=== PATIENT | male | born 1945 | race Caucasian/White ===

== ENCOUNTER 2016-12-07 08:29 | Outpatient (CLI) | payer OTHER ==
[~2016-12-07] VITALS: Ht 175.3 cm; Wt 81.6 kg
[2016-12-07] VITALS (7 sets, daily range): BP systolic 83–100; BP diastolic 55–73
[2016-12-07] MEDS ORDERED: DOXA8TAB59 PO (09:09)
[2016-12-07] MEDS ORDERED: CYCL10TA2 PO (09:09)
[2016-12-07] MEDS ORDERED: CHOL10003 PO (09:09)
[2016-12-07] MEDS ORDERED: SENN1TAB99 PO (09:09)
[2016-12-07] MEDS ORDERED: PREG50CA PO ×2 (09:09)
[2016-12-07] MEDS ORDERED: MORP15TA PO ×2 (09:09)
[2016-12-07] MEDS ORDERED: VENL150C PO (09:09)
[2016-12-07] MEDS ORDERED: SERT100T8 PO (09:09)
[2016-12-07] MEDS ORDERED: CYAN10005 PO (09:09)
[2016-12-07] MEDS ORDERED: TRAZ50TA15 PO (09:09)
[2016-12-07] MEDS ORDERED: HYDR25TA9 PO (09:09)
[2016-12-07] MEDS ORDERED: MELO-156 PO (09:09)
[2016-12-07 09:30] LABS: BASO % 0 % (0-3); EOS % 1 % (0-3); HEMATOCRIT 45.4 % (39.0-53.0); HEMOGLOBIN 15.4 g/dL (13.0-17.5); LYMPH # 1.2 x10^3/uL (1.0-4.8); LYMPH % 19 % (24-48); MEAN CORPUSCULAR HEMOGLOBIN 32 pg (25-35); MEAN CORPUSCULAR HGB CONC 34 g/dL (31-37); MEAN CORPUSCULAR VOLUME 95 fL (79-100); MONO % 7 % (0-9); NEUT % 73 % (31-73); PLATELET COUNT 139 x10^3/uL (140-400); RED BLOOD COUNT 4.78 x10^6/uL (4.30-5.70)
[2016-12-07 09:36] LABS: CREATININE 0.9 mg/dL (0.7-1.3); GFR 83.2; POTASSIUM 3.8 mmol/L (3.5-5.1)
[2016-12-07 09:39] LABS: INR 1.1 (0.8-1.1); PROTHROMBIN TIME PATIENT 13.2 SEC (11.7-14.0)
[2016-12-07] MEDS ORDERED: IODIXANOL 320MG/ML 50ML VIAL. ONE (09:43)
[2016-12-07] MEDS ORDERED: IOHEXOL 300 MG/ML 100ML VIAL. ONE (09:43)
[2016-12-07] MEDS ORDERED: HEPARIN for ARTERIAL LINE 1,500 ML ONE (09:43)
[2016-12-07] MEDS ORDERED: IODIXANOL 320 MG/ML 100 ML VIAL. ONE ×2 (09:43→10:52)
[2016-12-07] MEDS ORDERED: LIDOCAINE 1% / SOD BICARB 8.4% 20 ML VIAL. IJ ONE (09:45)
[2016-12-07] MEDS ORDERED: FENTANYL PF 100 MCG/2 ML VIAL. ONE (10:04)
[2016-12-07] MEDS ORDERED: MIDAZOLAM HCL 2 MG/2 ML VIAL. ONE (10:04)
[2016-12-07] MEDS ORDERED: HEPARIN for IV BOLUS 10,000 UNIT/10 ML VIAL. ONE (10:30)
[2016-12-07] MEDS ORDERED: IOHEXOL 300 MG/ML 100ML VIAL. IART ONE (11:15)
[2016-12-07] MEDS ORDERED: FENTANYL PF 100 MCG/2 ML VIAL. IV ONE (11:15)
[2016-12-07] MEDS ORDERED: HEPARIN for IV BOLUS 10,000 UNIT/10 ML VIAL. IV ONE (11:15)
[2016-12-07] MEDS ORDERED: IODIXANOL 320 MG/ML 100 ML VIAL. IART ONE (11:15)
[2016-12-07] MEDS ORDERED: MIDAZOLAM HCL 2 MG/2 ML VIAL. IV ONE (11:15)
[2016-12-07] MEDS ORDERED: CLOPIDOGREL BISULFATE 75 MG TABLET PO ONE (11:30)
[2016-12-07] MEDS ORDERED: CLOPIDOGREL BISULFATE 75 MG TABLET ONE (11:38)
--- NOTE | 2016-12-07 11:42 | PDOC ---
MODERATE SEDATION ASSESSMENT RISKS/ALTERNATIVES Risks/Alternatives Risks and alternatives of this type of sedation and procedure discussed with: RISK/ALTERNATIVES: Patient H & P ON CHART H & P H & P on chart and reviewed for co-morbid conditions and appropriate labs. H&P ON CHART: Yes STATUS PREG STATUS ASSESSED: N/A MEDS/ALLERGIES REVIEWED Meds/Allergies Reviewed Medications and Allergies including time and route of recently administered narcotics and sedatives. MEDS/ALLERGIES REVIEWED: Yes ASA RATING ASA RATING: I AIRWAY ASSESSMENT Airway Assessment Airway patency, oral function limitations, presence of caps, crowns, dentures, partials, and ability to extend neck assessed. AIRWAY ASSESSMENT: Yes MALLAMPATI SCORE MALLAMPATI SCORE: II PRE-SEDATION ASSESSMENT PRE-SEDATION ASSESSMENT: Yes AMERICA LINCOLN MD Dec 07, 2016 11:42
--- NOTE | 2016-12-07 11:48 | PDOC1 ---
History and Physical Date of Procedure Date of Admission 12/07/16 Procedure Procedure Abdominal aortogram with right lower extremity angio +/- intervention Indication Indication 71 YO male smoker with right small toe gangrene. Abnormal noninvasive study c/ w significant right lower extremity PAD. Diagnostic angio +/- intervention requested by vascular surgery. Past Medical History Past Medical History See Nursing Pre Procedure PMH Past Surgical History Past Surgical History See Nursing Pre Procedure PSH Current Medications Current Medications Current Medications Iodixanol (Visipaque 320) 50 ml STK-MED ONCE .ROUTE ; Start 12/07/16 at 09:43; Stop 12/07/16 at 09:44; Status DC Iohexol 100 ml 100 ml STK-MED ONCE .ROUTE ; Start 12/07/16 at 09:43; Stop at 09:44; Status DC Heparin Sodium/ Sodium Chloride 1,500 ml @ As Directed STK-MED ONCE .ROUTE ; Start 12/07/16 at 09:43; Stop 12/07/16 at 09:44; Status DC Iodixanol (Visipaque 320) 100 ml STK-MED ONCE .ROUTE ; Start 12/07/16 at 09:43; Stop 12/07/16 at 09:44; Status DC Lidocaine/Sodium Bicarbonate (Buffered Lidocaine 1%) 20 ml 1X ONCE IJ Last administered on 12/07/16 11:20; Start 12/07/16 at 09:45; Stop 12/07/16 at 09:46 ; Status DC Fentanyl Citrate (Fentanyl 2ml Vial) 100 mcg STK-MED ONCE .ROUTE ; Start at 10:04; Stop 12/07/16 at 10:05; Status DC Midazolam HCl (Versed) 2 mg STK-MED ONCE .ROUTE ; Start 12/07/16 at 10:04; Stop 12/07/16 at 10:05; Status DC Heparin Sodium (Porcine) 10,000 unit STK-MED ONCE .ROUTE ; Start 12/07/16 at 10: 30; Stop 12/07/16 at 10:31; Status DC Iodixanol (Visipaque 320) 100 ml STK-MED ONCE .ROUTE ; Start 12/07/16 at 10:52; Stop 12/07/16 at 10:53; Status DC Heparin Sodium/ Sodium Chloride 3,000 unit 1X ONCE IART Last administered on 11:21; Start 12/07/16 at 11:15; Stop 12/07/16 at 11:16; Status DC Midazolam HCl (Versed) 2 mg 1X ONCE IV Last administered on 12/07/16 11:21; Start 12/07/16 at 11:15; Stop 12/07/16 at 11:16; Status DC Fentanyl Citrate (Fentanyl 2ml Vial) 100 mcg 1X ONCE IV Last administered on 11:21; Start 12/07/16 at 11:15; Stop 12/07/16 at 11:16; Status DC Iohexol (Omnipaque 300 Mg/ml) 100 ml 1X ONCE IART Last administered on 11:20; Start 12/07/16 at 11:15; Stop 12/07/16 at 11:16; Status DC Iodixanol (Visipaque 320) 100 ml 1X ONCE IART Last administered on 12/07/16 11:20; Start 12/07/16 at 11:15; Stop 12/07/16 at 11:16; Status DC Heparin Sodium (Porcine) 6,000 unit 1X ONCE IV Last administered on 12/07/16 11:26; Start 12/07/16 at 11:15; Stop 12/07/16 at 11:16; Status DC Clopidogrel Bisulfate (Plavix) 600 mg 1X ONCE PO Last administered on 11:30; Start 12/07/16 at 11:30; Stop 12/07/16 at 11:31; Status DC Clopidogrel Bisulfate (Plavix) 75 mg STK-MED ONCE .ROUTE ; Start 12/07/16 at 11: 38; Stop 12/07/16 at 11:39; Status DC Clopidogrel Bisulfate (Plavix) 75 mg DAILYWBKFT PO ; Start 12/08/16 at 08:00; Stop 03/07/17 at 08:00; Status UNV Active Scripts Active Reported Effexor Xr (Venlafaxine Hcl) 150 Mg Cap.er.24h 150 Mg PO DAILY Trazodone Hcl 50 Mg Tablet 50 Mg PO HS Sertraline Hcl 100 Mg Tablet 125 Mg PO DAILY Lyrica (Pregabalin) 50 Mg Capsule 50 Mg PO HS Lyrica (Pregabalin) 50 Mg Capsule 100 Mg PO [id number] Morphine Sulfate 15 Mg Tablet 15 Mg PO AT LUNCH AND DINNER Morphine Sulfate 15 Mg Tablet 30 Mg PO [id number] Meloxicam 7.5 Mg Tablet 7.5 Mg PO DAILY Hydrochlorothiazide Tablet (Hydrochlorothiazide) 25 Mg Tablet 25 Mg PO DAILY Doxazosin Mesylate 8 Mg Tablet 8 Mg PO HS Senna-Docusate Sodium Tablet (Sennosides/Docusate Sodium) 1 Each Tablet 1 Each PO TID Cyclobenzaprine Hcl 10 Mg Tablet 10 Mg PO BID Vitamin B-12 (Cyanocobalamin (Vitamin B-12)) 1,000 Mcg Tablet 1,000 Mcg PO DAILY Vitamin D3 (Cholecalciferol (Vitamin D3)) 1,000 Unit Tablet 1,000 Unit PO DAILY Allergies Allergies: Coded Allergies: No Known Drug Allergies (Unverified , 12/07/16) Physical Exam Vital Signs Vital Signs Date Time Temp Pulse Resp B/P Pulse Ox O2 Delivery O2 Flow Rate FiO2 12/07/16 11:21 14 98 Nasal Cannula 2.0 12/07/16 09:21 98.1 91 100/65 98.1 Lungs: Clear to auscultation Heart: Regular rate Psych/Mental Status: Mental status NL 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 Non palpable right foot/ankle pulse. Right small toe ulceration Diagnostic Data/Imaging Images No prior imaging available Assessment Assessment 71 YO male smoker, with rt small toe gangrene and with abnormal rt lower extremity noninvasive studies c/w significant PAD. Problems: Plan Plan Diagnostic arteriogram +/- intervention. AMERICA LINCOLN MD Dec 07, 2016 11:48
--- NOTE | 2016-12-07 11:55 | PDOC ---
Exam Mold Sprayer Mold Sprayer Joaquin Ornament Stapler Ornament Stapler Imedla Cates Pre-Procedure Diagnosis Pre-Procedure Diagnosis 71 YO smoker with rt small toe gangrene, with nonpalpable right ankle/foot pulses, and with abnormal noninvasive study c/w significant rt lower extremity PAD. Post-Procedure Diagnosis Post-Procedure Diagnosis Same. No AAA or significant aortoiliac inflow disease, bilaterally. Short segment distal rt SFA occlusion. Patent tibial trifurcation, with satisfactory 2 vessel distal r/o to foot. Procedure Performed Procedure Performed Abdominal aortogram with selective right lower extremity angio. HOME CARE ATTENDANT followed by Viabahn stenting rt SFA short segment occlusion. Type of Anesthesia Type of Anesthesia Local + Mod sedation Estimated Blood Loss EBL: 50 cc Condition of Patient Condition of Patient Stable. No apparent complication. Disposition Disposition From IR to CVOBS for recovery. Plavix load, then Rx for daily Plavix x 3 months ---continue ASA 81mg for life. F/u with Dr Lafleur. Full report to follow. AMERICA LINCOLN MD Dec 07, 2016 11:55
[2016-12-08] MEDS ORDERED: CLOPIDOGREL BISULFATE 75 MG TABLET PO SCH (08:00)
--- NOTE | 2016-12-08 08:32 | RAD ---
Abdominal aortogram with selective right lower extremity arteriogram BUTTONHOLE MAKER followed by Viabahn stenting of distal right SFA occlusion Indication: 71-year-old male with right small toe gangrene. Nonpalpable right ankle/foot pulses and abnormal outside noninvasive study, consistent with significant right lower extremity PAD. Diagnostic arteriogram, with possible intervention, has been requested by vascular surgery. Fluoroscopy time: 19.1 minutes Kerma-area Product: 165 Gycm2 Contrast material: 40 cc Omnipaque 300. 162 cc Visipaque 320. Anesthesia: 71 minutes moderate sedation was provided utilizing a total of 2 mg Versed and 100 mcg fentanyl, IV. The patient was appropriately monitored by a qualified independent observer throughout the time of moderate sedation. Consent: The procedure was explained in its entirety to the patient and/or the patient's designated international account representative by a member of the treatment team. This included a discussion of risks and benefits and commonly accepted alternatives to the procedure, as well as expected consequences of no treatment at all. Discussion of risks included, but was not limited to, those that are most frequent and those that are rare, but possibly severe or life-threatening, as well as the possibility of unforeseen complications. Sterility: All elements of maximal sterile barrier technique were utilized, including cap, mask, sterile gown, sterile gloves, large sterile sheet, appropriate hand hygiene, and 2% chlorhexidine for cutaneous antisepsis. Procedure: Informed consent was obtained from the patient. He was placed supine on the angiography table. Preliminary ultrasound examination of left groin revealed wide patency of right common femoral artery, which was documented with a single hard copy ultrasound image. Left groin was then prepped and draped in the usual sterile fashion, utilizing all elements of maximal sterile barrier technique, as described above. Moderate sedation was provided with IV Versed and fentanyl. Using aseptic technique, local anesthesia, direct ultrasound guidance, and the micropuncture system, a 5 [place] left common femoral artery sheath was successfully introduced. Abdominal aortogram: A 5 [place] Omni Flush catheter was advanced through the left groin sheath into suprarenal abdominal aorta. Omnipaque 300 was injected and abdominal aortogram DSA images were obtained. Findings: Infrarenal abdominal aorta shows mild atherosclerotic plaquing, without aneurysmal dilatation, and without significant stricture. No hemodynamically significant renal artery stenosis is identified, bilaterally. Celiac trunk, SMA, and CHERELLE are patent. Oblique pelvis injection: The Omni Flush catheter was withdrawn into terminal aorta, just above bifurcation. Omnipaque 300 was again injected and DSA images were obtained over pelvis in the MELLISA projection. Findings: Right common iliac artery shows minimal plaquing, without significant stenosis. Left common iliac artery shows moderate plaquing, without flow-limiting stenosis. Both external iliac arteries are small in caliber, without hemodynamically significant lesion. Hypogastric arteries are patent, bilaterally. Right lower extremity arteriogram: The Omni Flush catheter was advanced across aortic bifurcation and was positioned within right common femoral artery. Visipaque was injected and DSA images were obtained over right groin in the NAVARRETE projection. Additional Visipaque was injected and digital angiographic images were obtained from groin through foot. Findings: Right common femoral artery and deep femoral artery are widely patent. A short, 3 to 4 cm segment of complete, chronic occlusion lies within distal right SFA, well above abductor canal. Right SFA-popliteal arterial segment is otherwise unremarkable. Right tibial trifurcation is widely patent. Large caliber posterior tibial artery is widely patent from origin through medial and lateral plantar arteries at forefoot. Smaller caliber anterior tibial artery is widely patent from origin through dorsalis pedis artery at mid foot. Diminutive peroneal artery is patent from origin through distal calf/ankle. Right SFA arterial intervention: Given this patient's right small toe gangrene, the decision was made to proceed with attempted percutaneous recanalization of the short segment right SFA occlusion. The 5 [place] Omni Flush catheter, previously positioned within contralateral right common femoral artery, was removed over a Monstrousumo advantage guidewire, which was easily advanced into mid right SFA. The 5 [place] left common femoral artery sheath was then exchanged for a 7 [place] Gordon sheath, which was advanced over the advantage wire across aortic bifurcation into right common femoral artery. Following IV bolus ministration of 6000 units heparin, a [place] catheter was introduced through the Gordon sheath over the advantage wire. Utilizing fluoroscopic guidance and road mapping technique, the [place] catheter/advantage guidewire combination was successfully advanced across the short segment, chronic right SFA occlusion into mid right popliteal artery. Satisfactory intraluminal position of the [place] catheter within right popliteal artery was confirmed with a contrast injection. The [place] catheter was then exchanged over the Terumo advantage guidewire for a 4 mm x 40 mm Cordis extreme BUTTONHOLE MAKER balloon, which was utilized to perform preliminary balloon dilatation of the short segment right SFA occlusion, to a peak pressure of 10 russ for a total of 4 minutes. Post angioplasty DSA images revealed residual irregular narrowing and dissection within the angioplastied segment. I was concerned that further dilatation of this segment with a DCB might well result in progression in areas of dissection. Therefore, placement of a Viabahn covered stent was selected as treatment of choice. A 4 [place] straight catheter was advanced over the advantage wire into mid right popliteal artery. This catheter was then removed over a long grand slam microguidewire. A 5 mm x 15 mm [place] Viabahn covered stent was then introduced through the Gordon sheath over the grand slam wire and was carefully deployed across the right SFA lesion, utilizing fluoroscopic guidance and road mapping technique. Post dilatation of the Viabahn stent was then performed utilizing a 5 mm x 40 mm Cordis extreme BUTTONHOLE MAKER balloon. Completion DSA images were then obtained, which revealed complete resolution of the right SFA occlusion, without complicating dissection or thrombosis.. Images over right tibial trifurcation and right foot revealed no evidence of post procedure distal embolization. Patient tolerated the procedure well without apparent complication. Hemostasis was achieved at the right groin puncture site utilizing the Angio-Seal system. Impression: 1. No abdominal aortic aneurysm or significant aortoiliac inflow stenosis. 2. Widely patent right deep femoral artery. 3. Short segment, chronic occlusion of distal right SFA, well above abductor canal. Right SFA-popliteal arterial segment is otherwise unremarkable. 4. Widely patent right tibial trifurcation, with good runoff to right foot via posterior tibial and anterior tibial arteries, as described. 5. Successful, uneventful balloon angioplasty, followed by Viabahn stenting, of short segment distal right SFA chronic occlusion, as described. Completion images revealed widely patent right SFA, without complicating dissection, thrombosis, or distal embolization to right tibial trifurcation or right foot.
== END 2016-12-07 14:04 | disposition home or self-care (01) ==
LOC: INTRAD 08:29
DX: I74.3 Embolism and thrombosis of arteries of the lower extremities (principal); F17.200 Nicotine dependence, unspecified, uncomplicated; I96 Gangrene, not elsewhere classified
CPT/HCPCS: 36415; 37226; 75625; 75710; 75774; 76937; 80048; 85027; 85610; C1713; C1758; C1760; C1769; C1892; C1894; G0269; J2250; J3010; Q9967

== ENCOUNTER 2016-12-08 17:34 | Emergency (ER) | payer OTHER ==
[~2016-12-08] VITALS: Ht 175.3 cm; Wt 83.5 kg
[~2016-12-08 17:34] MED LIST: CHOL10003 PO; CYAN10005 PO; CYCL10TA2 PO; DOXA8TAB59 PO; HYDR25TA9 PO; MELO-156 PO; MORP15TA PO; PREG50CA PO; SENN1TAB99 PO; SERT100T8 PO; TRAZ50TA15 PO; VENL150C PO
--- NOTE | 2016-12-08 19:51 | PHYS DOC ---
Past Medical History Past Medical History: COPD, Depression, Other Additional Past Medical Histor: PAD; chronic back pain; Past Surgical History: Other Additional Past Surgical Histo: arteriogram; left tib-fib Alcohol Use: None Drug Use: None Adult General Chief Complaint Chief Complaint: [facility] HPI Patient is a 71 year old male who presents with swelling to the left groin. The patient underwent angiography by left femoral artery approach with placement of a right femoral artery stent for peripheral vascular disease by Dr. Nuñez yesterday. Earlier this evening, the patient in the patient's noticed increasing swelling to the left groin and the appearance of bruising. The patient states that he has mild tenderness in this area. They called Dr. Nuñez who advised that the patient come to the emergency department for evaluation as he wanted to rule out a pseudoaneurysm. Patient at this time denies any severe symptoms. Patient states that the rate of swelling has decreased significantly. Patient denies any lightheadedness, fevers, difficulty urinating, or abdominal pain. Review of Systems Review of Systems Constitutional: Denies fever or chills [] Eyes: Denies change in visual acuity, redness, or eye pain [] HENT: Denies nasal congestion or sore throat [] Respiratory: Denies cough or shortness of breath [] Cardiovascular: No additional information not addressed in HPI [] GI: Denies abdominal pain, nausea, vomiting, bloody stools or diarrhea [] : Left groin bruising, swelling, pain [] Musculoskeletal: Denies back pain or joint pain [] Integument: Denies rash or skin lesions [] Neurologic: Denies headache, focal weakness or sensory changes [] Endocrine: Denies polyuria or polydipsia [] Allergies Allergies Allergies Coded Allergies Type Severity Reaction Last Updated Verified No Known Drug Allergies 12/07/16 No Physical Exam Physical Exam Constitutional: Alert, afebrile, no acute distress. [] HENT: Normocephalic, atraumatic, bilateral external ears normal, oropharynx moist, no oral exudates, nose normal. [] Eyes: PERRLA, EOMI, conjunctiva normal, no discharge. [] Neck: Normal range of motion, no tenderness, supple, no stridor. [] Cardiovascular:Heart rate regular rhythm, no murmur [] Lungs & Thorax: Bilateral breath sounds clear to auscultation [] Abdomen: Bowel sounds normal, soft, mild to moderate left inguinal soft tissue swelling with overlying ecchymosis, minimally tender to palpation, no masses, no pulsatile masses.[] Skin: Warm, dry, no erythema, no rash. [] Back: No tenderness, no CVA tenderness. [] Extremities: No tenderness, no cyanosis, no clubbing, ROM intact, no edema. [] Neurologic: Alert and oriented X 3, normal motor function, normal sensory function, no focal deficits noted. [] Current Patient Data Vital Signs Vital Signs Date Time Temp Pulse Resp B/P Pulse Ox O2 Delivery O2 Flow Rate FiO2 12/08/16 18:50 98.1 102 18 132/73 96 Room Air 98.1 EKG EKG Not performed [] Radiology/Procedures Radiology/Procedures [facility] [address] [place] [address] IMAGING REPORT Signed PATIENT: PANCHO FINCH ACCOUNT: [id number] : 1945 LOCATION: ER AGE: 71 SEX: M EXAM STATUS: REG ER ORD. PHYSICIAN: TORITO HERNÁNDEZ MD REASON: left groin hematoma,s/p angio with right fem art stent placement yesterday PROCEDURE: ARTERIAL STUDY LOWER EXT LEFT PROCEDURE Limited left lower extremity arterial Doppler. HISTORY Post angiogram. Evaluate for pseudoaneurysm. Bruising and swelling. TECHNIQUE Grayscale, color Doppler, spectral Doppler imaging was performed of the left inguinal region. COMPARISON None. FINDINGS Left common femoral artery and left common femoral vein were interrogated. There is no evidence of pseudoaneurysm or convincing AV fistula. Left inguinal region demonstrates a small hematoma which measures 1.6 x 1.4 x 0.9 centimeters. IMPRESSION 1. No evidence of pseudoaneurysm in left inguinal region. 2. Small, expected hematoma. Electronically signed by: Magdaleno Titus MD (Dec 08, 2016 19:58:57) DICTATED and SIGNED BY: MAGDALENO TITUS MD DATE: 12/08/161957 CC: TORITO HERNÁNDEZ MD; JAVID FOLEY ~ [] Course & Med Decision Making Course & Med Decision Making Pertinent Labs and Imaging studies reviewed. (See chart for details) Ultrasound was negative for pseudoaneurysm and did not show any evidence of continued bleeding at the puncture site. The patient feels well at this time. I called Dr. Nuñez and discuss the results with him. He stated that it would be fine for the patient be discharged home and recommended follow-up with primary doctor in the next 2-3 days. Advised return emergency department for any worsening symptoms. Patient voiced understanding and in agreement with treatment plan. Dragon Disclaimer Dragon Disclaimer This electronic medical record was generated, in whole or in part, using a voice recognition dictation system. Departure Departure Impression: Primary Impression: Groin hematoma Disposition: 01 HOME, SELF-CARE Condition: GOOD Referrals: JAVID FOLEY (PCP) Patient Instructions: Hematoma Additional Instructions: Follow-up with primary doctor in the next 2-3 days. Return to the emergency department for any worsening symptoms. Problem Qualifiers Primary Impression: Groin hematoma Encounter type: initial encounter Qualified Code: S30.1XXA - Contusion of abdominal wall, initial encounter TORITO HERNÁNDEZ MD Dec 08, 2016 19:51
--- NOTE | 2016-12-08 19:59 | RAD ---
PROCEDURE Limited left lower extremity arterial Doppler. HISTORY Post angiogram. Evaluate for pseudoaneurysm. Bruising and swelling. TECHNIQUE Grayscale, color Doppler, spectral Doppler imaging was performed of the left inguinal region. COMPARISON None. FINDINGS Left common femoral artery and left common femoral vein were interrogated. There is no evidence of pseudoaneurysm or convincing AV fistula. Left inguinal region demonstrates a small hematoma which measures 1.6 x 1.4 x 0.9 centimeters. IMPRESSION 1. No evidence of pseudoaneurysm in left inguinal region. 2. Small, expected hematoma. Electronically signed by: Magdaleno Burton MD (Dec 08, 2016 19:58:57)
[2016-12-08 20:08] VITALS: BP 104/63
== END 2016-12-08 20:30 | disposition home or self-care (01) ==
LOC: ER 17:34
DX: S30.1XXA Contusion of abdominal wall, initial encounter (principal); J44.9 Chronic obstructive pulmonary disease, unspecified; F32.9 Major depressive disorder, single episode, unspecified; G89.29 Other chronic pain; I73.9 Peripheral vascular disease, unspecified; Z95.820 Peripheral vascular angioplasty status with implants and grafts; X58.XXXA Exposure to other specified factors, initial encounter; Y93.89 Activity, other specified; Y92.89 Other specified places as the place of occurrence of the external cause; Y99.8 Other external cause status
CPT/HCPCS: 93923; 99284-25

== ENCOUNTER → 2016-12-20 | Day surgery (SDC) | payer OTHER ==
[~2016-12-20] MED LIST changes: +ASPI81TA2 PO; +BUPIVACAINE 0.25% 50 ML VIAL. ONE; +CEFAZOLIN 2GM PREMIX 50 ML IV ONE; +CLOP75TA PO; +DEXAMETHASONE SOD PHOS 20 MG/5 ML VIAL. ONE; +FENTANYL PF 100 MCG/2 ML VIAL. IV PRN; +HYDROMORPHONE 2 MG/ML VIAL. IV PRN; +IV RINGERS,LACTATED 1000ML 1,000 ML IV SCH; +LIDOCAINE 1% 1 ML SYRINGE. ID PRN; +LIDOCAINE 1% 20 ML VIAL. ONE; +LIDOCAINE 2% 100 MG/5 ML DISP.SYRIN. ONE; +MORPHINE SULFATE 2 MG/ML DISP.SYRIN. IV PRN; +ONDANSETRON PF 4 MG/2 ML VIAL. IV PRN; +ONDANSETRON PF 4 MG/2 ML VIAL. ONE; +PROCHLORPERAZINE 10 MG/2 ML VIAL. IV PRN; +PROPOFOL 20 ML IV ONE
--- NOTE | 2016-12-20 08:28 | PDOC ---
VASCULAR BRIEF OPERATIVE NOTE Date: Dec 20, 2016 Pre-Op Diagnosis gangrene right 5th toe Post-Op Diagnosis same Procedure Performed right 5th toe amputation Surgeon NIKI Cunha MD Dec 20, 2016 08:28
[2016-12-20 08:43] VITALS: BP 95/62
--- NOTE | 2016-12-20 09:40 | HP ---
ADMIT DATE: 12/20/2016 CHIEF COMPLAINT: Dry gangrene, right fifth toe. HISTORY OF PRESENT ILLNESS: This is a 71-year-old male with a longstanding history of chronic tobacco use. He presented with digit tip gangrene of the fifth toe of his right foot. He was seen initially on 11/03/2016. He has a history of 1 to 2 pack cigarette smoking everyday. Noninvasive vascular studies shows an ankle brachial index of 0.49 on the right and 0.97 on the left with toe brachial index of 0 on the right and 0.66 on the left. The patient underwent subsequent arteriographic evaluation and was noted to have a short segment superficial femoral artery occlusion. This was treated with percutaneous intervention balloon angioplasty and stent placement. Subsequent to that, he had remarkable improvement in his foot perfusion. He was brought here to the operating room today for digit amputation. PHYSICAL EXAMINATION: VITAL SIGNS: Stable. HEAD AND NECK: Unremarkable. Normal carotid upstrokes. No bruit, no cervical lymphadenopathy. CARDIOVASCULAR: Regular rate and rhythm, no murmur. LUNGS: Clear. There was a prolonged expiratory phase, but no wheezing. ABDOMEN: Soft, without masses or organomegaly. EXTREMITIES: No palpable aneurysm. He has palpable femoral pulses bilaterally. Excellent right radial pulse, slightly diminished left radial pulse, weakly palpable popliteal pulses. The patient was admitted today for digit amputation. MEDICATIONS: Include Vitamin D 1000 units daily, cyanocobalamin 1000 mcg daily doxazosin mesylate 8 mg daily, Neurontin 300 mg t.i.d., hydrochlorothiazide 25 mg daily, morphine sustained release 15 mg tablet as needed every 4 hours, naproxen 500 mg every 12, sertraline 100 mg daily, trazodone 50 mg at bedtime, aspirin 81 mg daily. IMPRESSION: Digit gangrene for toe amputation. Procedure, risks, complications, alternatives have all been reviewed. The patient understands and agrees to proceed as recommended. NIKI DUARTE MD DR: NINFA/anne JOB#: [id number] / [id number]
--- NOTE | 2016-12-20 10:22 | OP ---
DATE OF SURGERY: 12/20/2016 PREOPERATIVE DIAGNOSIS: Gangrene fifth toe tip, right foot. POSTOPERATIVE DIAGNOSIS: Gangrene fifth toe tip, right foot. PROCEDURE PERFORMED: Toe amputation. SURGEON: Niki Lafleur M.D. ANESTHETIC: Local MAC. INDICATIONS: This is a 71-year-old male with peripheral vascular disease, presented with gangrene of the fifth toe. Underwent arteriographic evaluation, he was noted to have a short segment superficial femoral artery occlusion. This was treated with balloon angioplasty and subsequent stent placement. He returns today for ____ amputation. DESCRIPTION OF PROCEDURE: The patient was given intravenous sedation. Preoperative antibiotics were administered. He was prepped and draped in sterile fashion. A racquet incision was placed on the fifth toe extending laterally towards the metatarsal head. The skin was incised and subcutaneous tissues were divided sharply. The bone was transected with a bone cutter. Rongeur was utilized to remove additional proximal bony spicules. Hemostasis was achieved with electrocautery and the wound was closed with interrupted 3-0 nylon sutures. The patient was moved from the operating room to recovery in satisfactory stable condition. NIKI LAFLEUR MD DR: NINFA/anne JOB#: [id number] / [id number]
--- NOTE | 2016-12-22 14:13 | PATHOLOGY ---
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 (JPM:csd; d/t: 12/22/2016) REPORT ELECTRONICALLY SIGNED BY: Dougie Johnson M.D. DATE/TIME: 12/22/2016 14:12 * * * * * * * * GROSS PATHOLOGY: The specimen is received in formalin labeled "Eduardo Durham, right fifth toe". Received is an amputated digit measuring 3.8 x 2.1 x 1.8 cm in greatest dimensions. The bone margin is jagged in appearance. The bone and soft tissue margins are inked black. The nail is present displaying a pale urrutia appearance measuring 0.7 x 0.5 cm. The distal half of the specimen displays a light urrutia, partially crusted to brown-black, necrotic epidermal surface, which grossly approaches the skin margin. A full-length longitudinal cross-section is submitted in cassettes A1 and A2, divided into proximal and distal aspects, following decalcification. (CAA; 12/21/2016) INITIAL CPT CODE(S): A; 36110, 82104 Professional services performed [place] [facility] [place] [address] Technical services performed by [facility] at [address] [place] [address], [facility] [address] [place] [address]. SPECIMEN(S) RECEIVED: A.Right 5th toe CLINICAL HISTORY: Right 5th toe gangrene PATIENT: EDUARDO DURHAM /AGE: 12 1945 (Age: 71) PATIENT #: [id number] ALT CASE #: SPECIMEN COLLECTION DATE: 12/20/2016 SPECIMEN RECEIVED DATE: 12/20/2016 [facility] - [address] [place] [address] - PHONE: [phone] * * * END OF REPORT * * *
== END | disposition home or self-care (01) ==
LOC: SURG 06:38
DX: I96 Gangrene, not elsewhere classified (principal); I73.9 Peripheral vascular disease, unspecified; F32.9 Major depressive disorder, single episode, unspecified; Z72.0 Tobacco use
CPT/HCPCS: 28820; 88305; 88311; J0690; J2704; J3490; J1100; J2405